=== PATIENT | female | born 1995 | race Caucasian/White ===

== ENCOUNTER 2017-09-25 15:09 | Emergency (ER) | payer OTHER ==
[~2017-09-25] VITALS: Ht 154.9 cm; Wt 61.2 kg
[2017-09-25 15:22] VITALS: BP 119/71; Ht 154.9 cm; Wt 61.2 kg
== END 2017-09-25 17:13 | disposition home or self-care (01) ==
LOC: ED 15:09
DX: M65.4 Radial styloid tenosynovitis [de Quervain] (principal); J45.909 Unspecified asthma, uncomplicated; I10 Essential (primary) hypertension; E11.9 Type 2 diabetes mellitus without complications

== ENCOUNTER 2018-01-18 19:40 | Emergency (ER) | payer MEDICAID ==
[~2018-01-18] VITALS: Ht 154.9 cm; Wt 61.2 kg
[2018-01-18 19:53] VITALS: Ht 154.9 cm; Wt 61.2 kg
[2018-01-18 20:58] VITALS: BP 131/84
== END 2018-01-18 20:59 | disposition home or self-care (01) ==
LOC: ED 19:40
DX: J40 Bronchitis, not specified as acute or chronic (principal); Z90.49 Acquired absence of other specified parts of digestive tract; Z86.2 Personal history of diseases of the blood and blood-forming organs and certain disorders involving the immune mechanism